=== PATIENT | male | born 1940 | race Caucasian/White ===

== ENCOUNTER 2017-05-14 12:20 | Emergency (ER) | payer MEDICARE, OTHER ==
[~2017-05-14] VITALS: Ht 172.7 cm; Wt 104.9 kg
[~2017-05-14 12:20] MED LIST: AMLO10TA2 PO; ATOR10TA PO; CICL15CR3 PO; LEVO750T26 PO; METF10002 PO; NEBI5TAB2 PO; OLME5TAB4 PO; SPIR25TA3 PO
[2017-05-14 14:04] LABS: BASOPHILS # (AUTO) 0.06 x10^3/uL (0-0.1); BASOPHILS % (AUTO) 1 % (0-1); EOSINOPHILS # (AUTO) 0.29 x10^3/uL (0-0.4); EOSINOPHILS % (AUTO) 3 % (1-7); LYMPHOCYTES # (AUTO) 1.43 x10^3/uL (1-3.4); LYMPHOCYTES % (AUTO) 15 % (22-44); MD NO; MEAN CORPUSCULAR HEMOGLOBIN 31.2 pg (27.5-34.5); MEAN CORPUSCULAR HGB CONC 33.7 g/dL (33.2-36.2); MEAN CORPUSCULAR VOLUME 92.6 fL (81-97); MEAN PLATELET VOLUME 7.4 fL (7.4-10.4); MONOCYTES % (AUTO) 9 % (2-9); NEUTROPHILS # (AUTO) 7.14 x10^3/uL (1.8-6.8); NEUTROPHILS % (AUTO) 73 % (42-75); PLATELET COUNT 333 x10^3/uL (130-400); RED BLOOD COUNT 4.41 x10^6/uL (4.38-5.82); RED CELL DISTRIBUTION WIDTH 14.6 % (9.4-14.8)
[2017-05-14 14:13] LABS: INTERNATIONAL NORMALIZED RATIO 1.11 (0.93-1.1); PROTHROMBIN TIME 11.5 Seconds (9.6-11.5)
[2017-05-14 14:25] LABS: ALBUMIN 3.1 g/dL (3.4-5.0); ANION GAP 11 mmol/L (5-15); CHLORIDE 104 mmol/L (98-107)
[2017-05-14 14:31] LABS: CALCIUM 9.1 mg/dL (8.5-10.1); CREATININE 1.28 mg/dL (0.7-1.3)
[2017-05-14 14:32] LABS: TROPONIN I < 0.015 ng/mL (0.000-0.045)
[2017-05-14] MEDS ORDERED: SODIUM CHLORIDE 0.9% 1,000ML IVBOLUS ONE (15:00)
[2017-05-14 16:21] VITALS: BP 106/54
== END 2017-05-14 16:45 | disposition home or self-care (01) ==
LOC: ED 13:43
DX: R53.1 Weakness (principal); E78.00 Pure hypercholesterolemia, unspecified; E11.9 Type 2 diabetes mellitus without complications; I10 Essential (primary) hypertension
CPT/HCPCS: 36415; 71045; 80048; 82040; 84484; 85025; 85610; 85730; 93005; 96360; 99285; J7030

== ENCOUNTER → 2017-08-28 | Outpatient (CLI) | payer MEDICARE, OTHER ==
[~2017-08-28] MED LIST changes: +REGADENOSON 0.4 MG/5 ML SYRINGE ONE
== END | disposition home or self-care (01) ==
LOC: CVU 06:45
PROVIDERS: ATTEND Internal Medicine Cardiovascular Disease
DX: R06.02 Shortness of breath (principal); I10 Essential (primary) hypertension; R07.9 Chest pain, unspecified
CPT/HCPCS: 78452; 93017; 93306; A9502; J2785

== ENCOUNTER → 2017-10-02 | Outpatient (CLI) | payer MEDICARE, OTHER ==
[~2017-10-02] MED LIST changes: -REGADENOSON 0.4 MG/5 ML SYRINGE ONE
== END | disposition home or self-care (01) ==
LOC: CFH 09:41
PROVIDERS: ATTEND Internal Medicine Gastroenterology
DX: K82.4 Cholesterolosis of gallbladder (principal); E11.9 Type 2 diabetes mellitus without complications; K52.9 Noninfective gastroenteritis and colitis, unspecified; R94.5 Abnormal results of liver function studies
CPT/HCPCS: 76705

== ENCOUNTER → 2019-11-24 | Outpatient (CLI) | payer MEDICARE, OTHER ==
[~2019-11-24] MED LIST changes: -AMLO10TA2 PO; +AMLO10TA8 PO; -NEBI5TAB2 PO; +NEBI5TAB3 PO; +REGADENOSON 0.4 MG/5 ML SYRINGE ONE; -SPIR25TA3 PO; +SPIR25TA5 PO
== END | disposition home or self-care (01) ==
LOC: CFH 07:30
PROVIDERS: ATTEND Internal Medicine Cardiovascular Disease
DX: I10 Essential (primary) hypertension (principal); R07.89 Other chest pain; R06.02 Shortness of breath
CPT/HCPCS: 78452; 93017; A9502; J2785